=== PATIENT | male | born 1960 | race Caucasian/White ===

== ENCOUNTER → 2024-04-24 10:52 | Outpatient (REF) | payer OTHER, SELFPAY | LOC: MRI 3T 10:52 | PROVIDERS: ATTENDING PHYSICIAN Student in an Organized Health Care Education/Training Program; FAMILY PHYSICIAN Family Medicine | DX: M25.561 Pain in right knee (principal) | CPT/HCPCS: 73721 ==

== ENCOUNTER 2024-05-14 07:30 | Outpatient (RCR) | payer OTHER, SELFPAY | END 2024-05-14 23:59 | disposition home or self-care (01) | LOC: RPT 07:30 | PROVIDERS: ATTENDING PHYSICIAN Student in an Organized Health Care Education/Training Program; FAMILY PHYSICIAN Family Medicine | DX: M72.2 Plantar fascial fibromatosis (principal); M25.561 Pain in right knee; Z73.6 Limitation of activities due to disability | CPT/HCPCS: 97110; 97162 ==

== ENCOUNTER 2024-06-13 06:34 | Outpatient (RCR) | payer OTHER, SELFPAY | END 2024-06-13 09:32 | disposition home or self-care (01) | LOC: RPT 06:34 | PROVIDERS: ATTENDING PHYSICIAN Student in an Organized Health Care Education/Training Program; FAMILY PHYSICIAN Family Medicine | DX: M72.2 Plantar fascial fibromatosis (principal); M25.561 Pain in right knee; Z73.6 Limitation of activities due to disability | CPT/HCPCS: 97110; 97112; 97140 ==

== ENCOUNTER → 2024-11-22 07:05 | Outpatient (REF) | payer OTHER, SELFPAY | LOC: HWRAD 07:05 | PROVIDERS: ATTENDING PHYSICIAN Family Medicine | DX: R10.32 Left lower quadrant pain (principal); R10.31 Right lower quadrant pain | CPT/HCPCS: 76882 ==

== ENCOUNTER 2025-02-03 06:01 | Day surgery (SDC) | payer OTHER, SELFPAY ==
[2025-01-27 09:32] LABS: Hematocrit 41.9 % (39.0-52.0); Hemoglobin 13.4 g/dL (13.0-18.0); Mean Corp Hgb Conc. 32.0 g/dL (33.0-37.0); Mean Corpuscular Volume 91.1 fL (80.0-94.0); Platelet Count 214 10^3/uL (130-400); Red Cell Dist. Width 12.3 % (11.5-14.5)
[2025-01-27 09:37] LABS: Blood Urea Nitrogen 20 mg/dl (9-20); Calcium 9.2 mg/dl (8.4-10.2); Carbon Dioxide 29 mmol/L (22-30); Chloride 104 mmol/L (98-107); Glucose 104 mg/dl (70-99); Potassium 4.6 mmol/L (3.5-5.1); Sodium 137 mmol/L (135-145); eGFR > 60.00
[2025-01-27 14:11] VITALS: BMI 26.7
[2025-02-03] VITALS (11 sets, daily range): BP systolic 118–151; BP diastolic 60–89; BMI 26.7
--- NOTE | 2025-02-03 06:37 | HP.FOC2 ---
Focused History & Physical
Chief Complaint
HPI:
Chief Complaint: Recurrent right inguinal hernia
HPI / Indication for Planned Procedure: Patient is a 64-year-old male recently seen in outpatient surgical evaluation secondary to swelling and discomfort in the right inguinal area. Previous history of right inguinal herniorrhaphy as a child.
Left inguinal hernia repair in his teens and he continues with some intermittent discomfort/tightness in the left groin area at times. Physical examination confirmed the presence of a reducible right inguinal hernia. After discussions regarding
treatment options patient presents today for operative correction.
Relevant Past Medical History: Other (ADHD, anxiety, history of left upper extremity DVT, osteopenia, lumbar disc disease)
Relevant Social History: Negative
Relevant Family History: Negative
Relevant Past Surgical History: Positive for (Open left inguinal hernia pair, open right inguinal hernia pair as an infant, removal hemangioma right ear, cataracts, vasectomy)
Review of Systems
Review of Pertinent Systems: All Systems Negative
Medication
See Medication form for detailed medications: Yes
Medication List (including Herbals & OTC):
famciclovir 500 mg tablet 500 mg PO DAILY 01/27/25
lisdexamfetamine 40 mg capsule (Vyvanse) 40 mg PO DAILY 01/27/25
Medications Reviewed: Yes
Allergies and Reactions
Patient has Allergies: No
Noted Allergies and Reactions:
Allergy/AdvReac Type Severity Reaction Status Date / Time
No Known Drug Allergies Allergy Unknown Verified 01/27/25 13:12
Pertinent Physical Exam
All Other Systems: Negative
Head/Neck: Normal
Lungs: Normal
Heart: Normal
Abdomen: Other (Reducible recurrent right inguinal hernia)
Extremities: Normal
Neurological: Normal
Diagnosis / Assessment
64-year-old male presenting for scheduled operative correction recurrent right inguinal hernia
Plan / Procedure
Robotic assisted laparoscopic repair recurrent right inguinal hernia with mesh
Anesthesia/Sedation to be done by Anesthesia Provider: Yes
--- NOTE | 2025-02-03 06:39 | W.SUR.PREOP ---
Pre-Operative Surgical Note
-
I have examined this patient prior to the performance of the scheduled procedure.
The patient's condition is unchanged from the time of the current History and
Physical and the patient is able to undergo the scheduled procedure.
[2025-02-03] MEDS: TYLENOL 1000 MG PO (06:42)
[2025-02-03] MEDS: NORMOSOL-R/PLASMALYTE-A 1000 IV (06:59)
--- NOTE | 2025-02-03 09:05 | W.IMMPOSTOP ---
Addendum entered and electronically signed by Paco Cazares MD 02/03/25 09:16:
#[id number]
Original Note:
Surgical Immed Post Op Note
-
Primary Surgeon: Paco Cazares MD
Assisting Surgeon: Sanjuana PIERSON; Nikki Pat
Pre-op Diagnosis: Right inguinal hernia
Post-op Diagnosis: Right inguinal hernia, direct
Procedure Performed: Robotic assisted laparoscopic ROSLYN repair right inguinal hernia with mesh
Anesthesia Type: GETA +0.25% Marcaine with epinephrine
Specimen / Cultures: None
Estimated Blood Loss: 6 mL
Complications: None immediate
Operative Findings: Right direct inguinal hernia. Indirect and femoral spaces normal. No significant lipoma of cord structures identified. 3D max large mid weight mesh repair. Plication of pseudosac to Raymond's with single 2-0 Vicryl stitch.
Mesh secured to Raymond's with 2-0 Vicryl stitch x 2. Peritoneal flap closed with 2-0 Monocryl STRATAFIX spiral.
[2025-02-03] MEDS: DILAUDID 0.25 MG IV ×2 (09:33→09:45)
== END 2025-02-03 08:15 | disposition home or self-care (01) ==
LOC: SDS 06:01
PROVIDERS: ATTENDING PHYSICIAN Surgery; FAMILY PHYSICIAN Family Medicine
DX: K40.91 Unilateral inguinal hernia, without obstruction or gangrene, recurrent (principal)
CPT/HCPCS: 49651; 36415; 80048; 85027; 93005; C1781